=== PATIENT | female | born 1945 | race Caucasian/White ===

== ENCOUNTER 2018-04-26 16:26 | Inpatient (IN) | payer OTHER ==
[~2018-04-26] VITALS: Ht 167.6 cm; Wt 116.8 kg
[~2018-04-26 16:26] MED LIST: CARDIZEM LA180 MG PO; CHILDREN'S ASPI81 M1 PO; CIPRO250 MG PO; EXCEDRIN EXTRA1 EACH PO; KEFLEX500 MG PO; LIPITOR10 MG PO; TORADOL10 MG PO; TRAMADOL HCL50 MG PO; ULTRAM50 MG PO; VALIUM10 MG PO; ZESTRIL10 MG PO; ZESTRIL5 MG PO; ZOLOFT; ZOLOFT PO
[2018-04-26 17:08] LABS: HEMATOCRIT 28.3 % (36.0-46.0); HEMOGLOBIN 7.8 G/DL (11.9-15.5); MCH 20.3 PG (29.0-34.0); MCHC 27.6 G/DL (30.0-36.0); MCV 73.5 FL (83-99); NRBC (%) 0.2 /100 WBC (0-0); PLATELET COUNT 210 K/uL (156-360); RBC DIS.WIDTH-SD 49.9 % (39-53); RED BLOOD COUNT 3.85 M/uL (3.80-5.20); WHITE BLOOD COUNT 8.8 K/uL (4.1-10.2)
[2018-04-26 17:12] LABS: ALBUMIN 3.9 g/dL (3.2-4.8); CHLORIDE 99 mEq/L (99-109); POTASSIUM 3.5 mEq/L (3.7-5.4); SODIUM 141 mEq/L (136-147)
[2018-04-26 17:14] LABS: GLUCOSE 182 mg/dL (70-99); TOTAL PROTEIN 6.8 g/dL (6.4-8.3)
[2018-04-26 17:16] LABS: TOTAL BILIRUBIN 0.6 mg/dL (0.0-1.0)
[2018-04-26 17:18] LABS: ALKALINE PHOSPHATASE 104 IU/L (3-129); CREATININE 0.9 mg/dL (0.6-1.3); GFR ESTIMATE (CALCULATED) > 59 mL/min/
[2018-04-26 17:19] LABS: UREA NITROGEN (BUN) 8 mg/dL (9-23)
[2018-04-26 17:20] LABS: AST (GOT) 38 IU/L (2-34)
[2018-04-26 17:21] LABS: ALT (GPT) 19 IU/L (3-49)
[2018-04-26 17:57] LABS: INTER. NORMALIZED RATIO 1.2
[2018-04-26 18:00] LABS: PTT 27.8 SEC (25-37)
[2018-04-26 18:10] LABS: TROP-I INTERPRETATION NEGATIVE; TROPONIN-I 0.01 ng/mL (0.0-0.30)
[2018-04-26 20:09] LABS: HEMATOCRIT 29.5 % (36.0-46.0); HEMOGLOBIN 8.1 G/DL (11.9-15.5); MCV 73.8 FL (83-99)
[2018-04-26] MEDS ORDERED: MATZIM LA180 MG PO (20:34)
[2018-04-26] MEDS ORDERED: VALIUM10 MG PO (20:34)
[2018-04-26] MEDS ORDERED: VITAMIN D31000 UNI2 PO (20:35)
[2018-04-26] MEDS ORDERED: CENTRUM WOMEN1 EACH PO (20:35)
[2018-04-26] MEDS ORDERED: ZOLOFT25 MG PO (20:35)
[2018-04-26] MEDS ORDERED: ZOLOFT100 MG PO (20:36)
[2018-04-26] MEDS ORDERED: B-COMPLEX-VITA1 EACH PO (20:38)
[2018-04-26] MEDS ORDERED: CORICIDIN HB1 TABLET PO (20:38)
[2018-04-26] MEDS ORDERED: LIPITOR10 MG PO (20:38)
[2018-04-26] MEDS ORDERED: PATANOL OP100 DROP/5 BOTH EYES (20:39)
[2018-04-26] MEDS ORDERED: FLOVENT 44120 INHALA IH (20:39)
[2018-04-26] MEDS ORDERED: NASONEX17 GM BOTH NARES (20:40)
[2018-04-26 23:42] LABS: SALICYLATE < 5.0 MG/DL (15-30)
[2018-04-26 23:43] LABS: ACETAMINOPHEN (TYLENOL) < 10 mcg/mL (10-30)
[2018-04-26 23:44] LABS: TROP-I INTERPRETATION NEGATIVE; TROPONIN-I 0.01 ng/mL (0.0-0.30)
[2018-04-27] VITALS (15 sets, daily range): BP systolic 120–166; BP diastolic 56–89
[2018-04-27 05:26] LABS: HEMATOCRIT 27.6 % (36.0-46.0); HEMOGLOBIN 7.4 G/DL (11.9-15.5)
[2018-04-27 05:45] LABS: TROP-I INTERPRETATION NEGATIVE; TROPONIN-I < 0.01 ng/mL (0.0-0.30)
[2018-04-27 07:32] LABS: FERRITIN 9 NG/ML (10-291)
[2018-04-27 07:49] LABS: FOLIC ACID (FOLATE) 19.5 NG/ML (5.0-22.0)
[2018-04-27 09:31] LABS: APPEARANCE CLEAR ((CLEAR)); BILIRUBIN NEGATIVE; BLOOD MODERATE; COLOR YELLOW ((YELLOW)); GLUCOSE (STRIP) NEGATIVE; KETONES NEGATIVE; LEUKOCYTES SMALL; NITRITE NEGATIVE; PROTEIN (STRIP) NEGATIVE; UROBILINOGEN 0.2 MG/DL (0.2-1.0)
[2018-04-27 09:48] LABS: BACTERIA NONE SEEN /HPF; EPITHELIAL CELLS RARE /HPF; MUCUS NONE SEEN /LPF; RED BLOOD CELLS 30-40 /HPF (0-5); UCUL ADDED? YES
[2018-04-27 10:43] LABS: HEMOGLOBIN A1c (GLYCOHEMOGLOB) 7.3 % (Below 5.7)
[2018-04-27 16:52] LABS: HEMATOCRIT 33.4 % (36.0-46.0); MCV 77.3 FL (83-99)
[2018-04-27 16:56] LABS: HEMOGLOBIN 9.4 G/DL (11.9-15.5)
[2018-04-28 01:09] LABS: HEMATOCRIT 33.8 % (36.0-46.0); HEMOGLOBIN 9.6 G/DL (11.9-15.5); MCV 77.3 FL (83-99)
[2018-04-28 03:24] VITALS: BP 140/82
[2018-04-28 05:05] LABS: HEMATOCRIT 31.7 % (36.0-46.0); HEMOGLOBIN 8.9 G/DL (11.9-15.5); MCH 21.7 PG (29.0-34.0); MCHC 28.1 G/DL (30.0-36.0); MCV 77.1 FL (83-99); NRBC (%) 0.2 /100 WBC (0-0); PLATELET COUNT 182 K/uL (156-360); RBC DIS.WIDTH-CV 19.9 % (11.8-14.6); RBC DIS.WIDTH-SD 54.1 % (39-53); RED BLOOD COUNT 4.11 M/uL (3.80-5.20); WHITE BLOOD COUNT 8.9 K/uL (4.1-10.2)
[2018-04-28 05:31] LABS: ALBUMIN 3.6 G/DL (3.2-4.8); CHLORIDE 102 MEQ/L (99-109); CREATININE 0.7 MG/DL (0.6-1.3); GFR ESTIMATE (CALCULATED) > 59 mL/min/; GLUCOSE 142 mg/dL (70-99); PHOSPHORUS 3.9 mg/dL (2.5-4.9); POTASSIUM 3.4 MEQ/L (3.7-5.4); SODIUM 143 MEQ/L (136-147); UREA NITROGEN (BUN) 7 mg/dL (9-23)
[2018-04-28 07:20] VITALS: BP 132/66
[2018-04-28 11:30] VITALS: BP 132/63
[2018-04-28 15:13] LABS: ALBUMIN 3.9 G/DL (3.2-4.8); ALKALINE PHOSPHATASE 97 IU/L (3-129); ALT (GPT) 15 IU/L (3-49); AST (GOT) 38 IU/L (2-34); CHLORIDE 115 MEQ/L (99-109); CREATININE 0.8 MG/DL (0.6-1.3); GFR ESTIMATE (CALCULATED) > 59 mL/min/; GLUCOSE 165 mg/dL (70-99); TOTAL BILIRUBIN 0.4 MG/DL (0.0-1.0); TOTAL PROTEIN 6.2 G/DL (6.4-8.3); UREA NITROGEN (BUN) 7 mg/dL (9-23)
[2018-04-28 15:16] LABS: SODIUM 158 MEQ/L (136-147)
[2018-04-28 16:45] VITALS: BP 129/61
[2018-04-28 21:50] VITALS: BP 131/77
[2018-04-29] VITALS: BP 136/64
[2018-04-29 05:21] VITALS: BP 164/76
[2018-04-29 05:44] LABS: BASOPHIL (%) 0.7 % (0-1); BASOPHIL COUNT 0.1 K/uL (0-0.1); EOSINOPHIL (%) 2.2 % (0-5); EOSINOPHIL COUNT 0.2 K/uL (0-0.3); HEMATOCRIT 33.5 % (36.0-46.0); HEMOGLOBIN 9.3 G/DL (11.9-15.5); LYMPHOCYTE (%) 16.9 % (15-42); LYMPHOCYTE COUNT 1.7 K/uL (1.0-2.8); MCH 21.4 PG (29.0-34.0); MCHC 27.8 G/DL (30.0-36.0); MCV 77.2 FL (83-99); MONOCYTE (%) 6.8 % (3-12); MONOCYTE COUNT 0.7 K/uL (0-0.8); NEUTROPHIL (%) 72.4 % (45-76); NEUTROPHIL COUNT 7.1 K/uL (1.8-6.4); PLATELET COUNT 188 K/uL (156-360); RBC DIS.WIDTH-CV 20.2 % (11.8-14.6); RBC DIS.WIDTH-SD 54.6 % (39-53); RED BLOOD COUNT 4.34 M/uL (3.80-5.20); WHITE BLOOD COUNT 9.8 K/uL (4.1-10.2)
[2018-04-29 05:57] LABS: CHLORIDE 99 MEQ/L (99-109); CREATININE 0.9 MG/DL (0.6-1.3); GFR ESTIMATE (CALCULATED) > 59 mL/min/; GLUCOSE 194 mg/dL (70-99); POTASSIUM 3.4 MEQ/L (3.7-5.4); SODIUM 141 MEQ/L (136-147); UREA NITROGEN (BUN) 9 mg/dL (9-23)
[2018-04-29 07:35] VITALS: BP 132/60
[2018-04-29] MEDS ORDERED: METOPROLOL SUCC25 MG PO (10:25)
[2018-04-29] MEDS ORDERED: LISINOPRIL2.5 MG PO (10:26)
[2018-04-29] MEDS ORDERED: PROTONIX40 MG PO (10:28)
[2018-04-29] MEDS ORDERED: LASIX40 MG PO (10:32)
[2018-04-29] MEDS ORDERED: K-DUR10 MEQ PO (10:38)
== END 2018-04-29 14:18 | disposition home health service (06) | DRG 291 ==
LOC: EME 16:26 → EDOF 22:03 → 4EAST 22:03 → ENRESERV 22:13 → 4EAST 23:55
PROVIDERS: Hospitalist; Internal Medicine; Internal Medicine Gastroenterology; Nurse Practitioner Family
PROC: 30233N1 Transfusion of Nonautologous Red Blood Cells into Peripheral Vein, Percutaneous Approach (ICD-10-PCS; principal; 2018-04-27)
PROC: 0DB78ZX Excision of Stomach, Pylorus, Via Natural or Artificial Opening Endoscopic, Diagnostic (ICD-10-PCS; 2018-04-28)
PROC: 0DJ08ZZ Inspection of Upper Intestinal Tract, Via Natural or Artificial Opening Endoscopic (ICD-10-PCS; 2018-04-28)
PROC: 0DB48ZX Excision of Esophagogastric Junction, Via Natural or Artificial Opening Endoscopic, Diagnostic (ICD-10-PCS; 2018-04-28)
DX: I11.0 Hypertensive heart disease with heart failure (principal); I50.31 Acute diastolic (congestive) heart failure; J96.01 Acute respiratory failure with hypoxia; I48.0 Paroxysmal atrial fibrillation; D50.9 Iron deficiency anemia, unspecified; K29.70 Gastritis, unspecified, without bleeding; K22.70 Barrett's esophagus without dysplasia; K25.7 Chronic gastric ulcer without hemorrhage or perforation; K57.10 Diverticulosis of small intestine without perforation or abscess without bleeding; E11.9 Type 2 diabetes mellitus without complications; J21.9 Acute bronchiolitis, unspecified; E87.6 Hypokalemia; E78.00 Pure hypercholesterolemia, unspecified; E66.01 Morbid (severe) obesity due to excess calories; Z68.41 Body mass index [BMI] 40.0-44.9, adult; K86.89 Other specified diseases of pancreas; G89.29 Other chronic pain; M54.5 Low back pain; K64.4 Residual hemorrhoidal skin tags; R04.0 Epistaxis; E78.5 Hyperlipidemia, unspecified; J45.909 Unspecified asthma, uncomplicated; M19.90 Unspecified osteoarthritis, unspecified site; F41.9 Anxiety disorder, unspecified; Z79.1 Long term (current) use of non-steroidal anti-inflammatories (NSAID); Z71.3 Dietary counseling and surveillance; Z74.09 Other reduced mobility; Z87.11 Personal history of peptic ulcer disease; Z90.711 Acquired absence of uterus with remaining cervical stump
CPT/HCPCS: 71046; 71250; 74176; 78582; 80048; 80053; 80069; 81003; 82607; 82728; 82746; 82948; 83036; 84484; 85014; 85018; 85025; 85027; 85379; 85610; 85730; 86850; 86900; 86901; 86920; 87086; 88305; 88342 TC; 93005; 93306; 94640; 94640 76; 94799; 99281; 99285; A9540; A9567; C9113; G0480; J1815; J1940; J2060; J7030; P9016; S0028